=== PATIENT | female | born 1930 | race Two or more races ===

== ENCOUNTER 2018-06-18 09:48 | Outpatient (CLI) | payer MEDICARE ==
[~2018-06-18 09:48] MED LIST: ASPI-496 PO; LEVO50TA5 PO; LISI-170 PO; LOVA40TA2 PO; METO25TA35 PO; MULT-717 PO
[2018-06-18 12:40] LABS: BASOPHILS # (AUTO) 0.03 x10^3/uL (0-0.1); BASOPHILS % (AUTO) 0 % (0-1); EOSINOPHILS # (AUTO) 0.16 x10^3/uL (0-0.4); EOSINOPHILS % (AUTO) 3 % (1-7); LYMPHOCYTES # (AUTO) 1.44 x10^3/uL (1-3.4); LYMPHOCYTES % (AUTO) 24 % (22-44); MD NO; MEAN CORPUSCULAR HEMOGLOBIN 27.5 pg (27.0-34.8); MEAN CORPUSCULAR HGB CONC 32.8 g/dL (32.4-35.8); MEAN CORPUSCULAR VOLUME 83.9 fL (80-100); MEAN PLATELET VOLUME 9.6 fL (7.4-10.4); MONOCYTES # (AUTO) 0.48 x10^3/uL (0.2-0.8); MONOCYTES % (AUTO) 8 % (2-9); NEUTROPHILS # (AUTO) 3.89 x10^3/uL (1.8-6.8); NEUTROPHILS % (AUTO) 65 % (42-75); PLATELET COUNT 314 x10^3/uL (130-400); RED BLOOD COUNT 4.54 x10^6/uL (3.82-5.3); RED CELL DISTRIBUTION WIDTH 15.8 % (9.6-15.2)
[2018-06-18 12:52] LABS: ALBUMIN 3.5 g/dL (3.4-5.0); ANION GAP 6 mmol/L (5-15); CALCIUM 8.8 mg/dL (8.5-10.1); CHLORIDE 109 mmol/L (98-107)
[2018-06-18 13:05] LABS: ALANINE AMINOTRANSFERASE 21 U/L (12-78); ALKALINE PHOSPHATASE 96 U/L (45-117); BILIRUBIN,TOTAL 0.3 mg/dL (0.2-1.0); CHOL/HDL RATIO 2.3; CHOLESTEROL, TOTAL 134 mg/dL (140-239); CREATININE 0.91 mg/dL (0.55-1.02); HDL CHOL % 43 % (28-40); HDL CHOLESTEROL (DIRECT) 58 mg/dL (40-60); LDL CHOLESTEROL,CALCULATED 57 mg/dL (54-169); TOTAL PROTEIN 7.1 g/dL (6.4-8.2); TRIGLYCERIDES 94 mg/dL (50-200); VLDL CHOLESTEROL 19 mg/dL (0-25)
== END 2018-06-18 23:59 | disposition home or self-care (01) ==
LOC: CFH 09:48
PROVIDERS: ATTEND Family Medicine
DX: E78.5 Hyperlipidemia, unspecified (principal); E55.9 Vitamin D deficiency, unspecified; E03.9 Hypothyroidism, unspecified; I10 Essential (primary) hypertension; M19.90 Unspecified osteoarthritis, unspecified site; R73.9 Hyperglycemia, unspecified
CPT/HCPCS: 36415; 80053; 80061; 82306; 84443; 85025

== ENCOUNTER 2018-08-29 18:40 | Inpatient (IN) | payer MEDICARE ==
[~2018-08-29] VITALS: Ht 160 cm; Wt 63.5 kg
--- NOTE | 2018-08-29 18:50 | NUR ---
PT IN GOWN IN [facility]; ERP AT . PT AND FAMILY EDUCATED ON ER PROCESS AND POC AND VERBALIZES UNDERSTANDING. CALL LIGHT IS WITHIN REACH. AWAITING ORDERS AT THIS TIME. PT ATTACHED TO VS MACHINES. VSS AT THIS TIME.
[2018-08-29] MEDS ORDERED: SODIUM CHLORIDE FLUSH 10ML SYR IVF ONE (19:00)
[2018-08-29] MEDS ORDERED: ONDANSETRON 2MG/ML, 2ML IVPush ONE (19:00)
[2018-08-29] MEDS ORDERED: MORPHINE SULFATE 4 MG/ML, 1ML IVPush PRN (19:00)
[2018-08-29] MEDS ORDERED: MORPHINE SULFATE 4 MG/ML, 1ML ONE (19:24)
[2018-08-29] MEDS ORDERED: ONDANSETRON 2MG/ML, 2ML ONE (19:24)
--- NOTE | 2018-08-29 19:26 | NUR ---
PT MEDICATED PER MAR
[2018-08-29 19:31] LABS: BASOPHILS # (AUTO) 0.06 x10^3/uL (0-0.1); BASOPHILS % (AUTO) 1 % (0-1); EOSINOPHILS # (AUTO) 0.07 x10^3/uL (0-0.4); EOSINOPHILS % (AUTO) 1 % (1-7); LYMPHOCYTES # (AUTO) 1.13 x10^3/uL (1-3.4); LYMPHOCYTES % (AUTO) 11 % (22-44); MD NO; MEAN CORPUSCULAR HEMOGLOBIN 27.4 pg (27.0-34.8); MEAN CORPUSCULAR VOLUME 83.1 fL (80-100); MEAN PLATELET VOLUME 9.6 fL (7.4-10.4); MONOCYTES # (AUTO) 0.82 x10^3/uL (0.2-0.8); MONOCYTES % (AUTO) 8 % (2-9); NEUTROPHILS # (AUTO) 8.05 x10^3/uL (1.8-6.8); NEUTROPHILS % (AUTO) 79 % (42-75); PLATELET COUNT 313 x10^3/uL (130-400); RED BLOOD COUNT 4.73 x10^6/uL (3.82-5.3)
[2018-08-29 19:35] LABS: ALANINE AMINOTRANSFERASE 24 U/L (12-78); ALBUMIN 3.7 g/dL (3.4-5.0); ANION GAP 9 mmol/L (5-15); CALCIUM 9.4 mg/dL (8.5-10.1); CHLORIDE 102 mmol/L (98-107); CREATININE 1.02 mg/dL (0.55-1.02)
[2018-08-29 19:37] LABS: ALKALINE PHOSPHATASE 92 U/L (45-117); BILIRUBIN,TOTAL 0.6 mg/dL (0.2-1.0); TOTAL PROTEIN 7.3 g/dL (6.4-8.2)
--- NOTE | 2018-08-29 20:14 | NUR ---
URINE COLLECTED AND WALKED TO LAB.
--- NOTE | 2018-08-29 20:22 | NUR ---
PT TO CT VIA RIO
[2018-08-29 20:25] LABS: MICROSCOPIC INDICATED
[2018-08-29] MEDS ORDERED: OMNIPAQUE 350 MG/ML, 100ML BOTTLE ONE (20:30)
[2018-08-29 20:31] LABS: CULTURE INDICATED? YES
--- NOTE | 2018-08-29 21:15 | NUR ---
PT RESTING COMFORTABLY IN [facility] AT THIS TIME, NADN. PT VSS. PT FAMILY AT BEDSIDE. PT HAS CALL LIGHT WITHIN REACH AT THIS TIME.
--- NOTE | 2018-08-29 21:43 | NUR ---
HOSPITALIST AT WITH PT.
[2018-08-29] MEDS ORDERED: SODIUM CHLORIDE 0.9% 1,000 ML IV ONE (21:44)
[2018-08-29] MEDS ORDERED: SODIUM CHLORIDE FLUSH 10ML SYR IVF PRN (22:00)
[2018-08-29] MEDS ORDERED: LORazepam 2 MG/ML, 1ML ONE (22:02)
--- NOTE | 2018-08-29 22:09 | NUR ---
VERBAL ORDERS RECEIVED FROM GIULIANO Mclaughlin NP FOR 0.5 MG IV ATIVAN FOR ANXIETY. PT MEDICATED PER JUN.
--- NOTE | 2018-08-29 22:24 | NUR ---
PT TO US VIA RIO. FAMILY IN ROOM AT .
[2018-08-29] MEDS ORDERED: LORazepam 2 MG/ML, 1ML IVPush PRN (22:30)
--- NOTE | 2018-08-29 22:54 | NUR ---
REPORT OF PT TO RENEE CARMONA. ALL QUESTIONS ANSWERED. 14 FR NG TUBE PLACED AND SECURED AT LEFT NOSTRIL. AIR BOLUS HEARD ON AUSCULTATION, AND GASTRIC CONTENTS SEEN WITH INTERMITTENT SUCTIONING.
[2018-08-29 23:45] VITALS: BP 179/75
[2018-08-30] MEDS ORDERED: HYDR-3237 PO (01:05)
[2018-08-30] MEDS ORDERED: TIMO5DRO37 EACHEYE (01:05)
[2018-08-30] MEDS ORDERED: CALC-649 PO (01:05)
[2018-08-30] MEDS ORDERED: CLOP75TA PO (01:05)
[2018-08-30] MEDS ORDERED: SODIUM CHLORIDE 0.9% 1,000 ML IV SCH (01:30)
[2018-08-30 02:00] VITALS: BP 159/71
[2018-08-30] MEDS: SODIUM CHLORIDE 0.9% 1,000 ML IV SCH ×2 (02:00→14:54)
[2018-08-30] MEDS: MORPHINE SULFATE 4 MG/ML, 1ML IV PRN ×4 (02:00→22:17)
[2018-08-30] MEDS ORDERED: LEVOTHYROXINE 25 MCG TABLET ONE (08:14)
[2018-08-30] MEDS: LISINOPRIL 20 MG TABLET PO SCH (08:21)
[2018-08-30] MEDS: LATANOPROST EACHEYE SCH ×2 (08:21→20:19)
[2018-08-30] MEDS: MULTIVITAMIN 1 TABLET PO SCH (08:21)
[2018-08-30] MEDS: TIMOLOL MALEATE EACHEYE SCH ×2 (08:21→20:19)
[2018-08-30] MEDS: [UNRECOGNIZED DRUG - OTHER] EACHEYE SCH ×2 (08:21→20:19)
[2018-08-30] MEDS: LEVOTHYROXINE 50 MCG TABLET PO SCH (08:21)
[2018-08-30] MEDS ORDERED: METOPROLOL TARTRATE 25 MG TABLET PO SCH (09:00)
[2018-08-30] MEDS ORDERED: CALCIUM/VITAMIN D3 250-125 TABLET PO SCH (09:00)
[2018-08-30 09:09] VITALS: BP 174/73
[2018-08-30 14:13] VITALS: BP 193/72
[2018-08-30] MEDS ORDERED: AMLODIPINE 2.5 MG TABLET PO ONE (15:00)
[2018-08-30 19:26] VITALS: BP 172/67
[2018-08-30] MEDS: METOPROLOL TARTRATE 25 MG TABLET PO SCH (20:19)
[2018-08-30] MEDS ORDERED: LOVASTATIN 40 MG TABLET PO SCH (21:00)
[2018-08-31] MEDS: MORPHINE SULFATE 4 MG/ML, 1ML IV PRN ×3 (02:06→20:38)
[2018-08-31] MEDS: SODIUM CHLORIDE 0.9% 1,000 ML IV SCH ×2 (02:07→18:37)
[2018-08-31 04:04] VITALS: BP 159/84
[2018-08-31 05:56] LABS: BASOPHILS % (AUTO) 0 % (0-1); EOSINOPHILS # (AUTO) 0.01 x10^3/uL (0-0.4); EOSINOPHILS % (AUTO) 0 % (1-7); LYMPHOCYTES % (AUTO) 10 % (22-44); MD NO; MEAN CORPUSCULAR HEMOGLOBIN 27.5 pg (27.0-34.8); MEAN CORPUSCULAR HGB CONC 32.7 g/dL (32.4-35.8); MEAN CORPUSCULAR VOLUME 84.3 fL (80-100); MEAN PLATELET VOLUME 9.5 fL (7.4-10.4); MONOCYTES # (AUTO) 0.96 x10^3/uL (0.2-0.8); MONOCYTES % (AUTO) 14 % (2-9); NEUTROPHILS # (AUTO) 5.22 x10^3/uL (1.8-6.8); NEUTROPHILS % (AUTO) 76 % (42-75); PLATELET COUNT 247 x10^3/uL (130-400); RED BLOOD COUNT 3.99 x10^6/uL (3.82-5.3); RED CELL DISTRIBUTION WIDTH 16.3 % (9.6-15.2)
[2018-08-31 06:02] LABS: ANION GAP 8 mmol/L (5-15); CALCIUM 8.4 mg/dL (8.5-10.1); CHLORIDE 107 mmol/L (98-107)
[2018-08-31 06:03] LABS: CREATININE 0.76 mg/dL (0.55-1.02)
[2018-08-31 07:25] VITALS: BP 149/62
[2018-08-31 09:40] VITALS: BP 184/89
[2018-08-31] MEDS: LISINOPRIL 20 MG TABLET PO SCH (09:44)
[2018-08-31] MEDS: LEVOTHYROXINE 50 MCG TABLET PO SCH (09:44)
[2018-08-31] MEDS: MULTIVITAMIN 1 TABLET PO SCH (09:44)
[2018-08-31] MEDS: METOPROLOL TARTRATE 25 MG TABLET PO SCH ×2 (09:44→20:03)
[2018-08-31] MEDS: LATANOPROST EACHEYE SCH ×2 (09:54→20:42)
[2018-08-31] MEDS: TIMOLOL MALEATE EACHEYE SCH ×2 (09:54→20:42)
[2018-08-31] MEDS: [UNRECOGNIZED DRUG - OTHER] EACHEYE SCH ×2 (09:54→20:42)
[2018-08-31 13:20] VITALS: BP 118/70
[2018-08-31 19:43] VITALS: BP 191/93
[2018-08-31] MEDS ORDERED: hydrALAzine 20 MG/ML, 1ML IV PRN (20:30)
[2018-08-31] MEDS: HEPARIN 5,000 UNITS/ML, 1ML SQ SCH (20:41)
[2018-09-01 00:06] VITALS: BP 139/74
[2018-09-01] MEDS: SODIUM CHLORIDE 0.9% 1,000 ML IV SCH ×2 (05:38→23:25)
[2018-09-01 05:41] LABS: BASOPHILS # (AUTO) 0.02 x10^3/uL (0-0.1); BASOPHILS % (AUTO) 0 % (0-1); EOSINOPHILS # (AUTO) 0.05 x10^3/uL (0-0.4); EOSINOPHILS % (AUTO) 1 % (1-7); LYMPHOCYTES % (AUTO) 14 % (22-44); MD NO; MEAN CORPUSCULAR HEMOGLOBIN 27.3 pg (27.0-34.8); MEAN CORPUSCULAR HGB CONC 32.6 g/dL (32.4-35.8); MEAN CORPUSCULAR VOLUME 83.8 fL (80-100); MONOCYTES # (AUTO) 0.68 x10^3/uL (0.2-0.8); MONOCYTES % (AUTO) 12 % (2-9); NEUTROPHILS # (AUTO) 4.12 x10^3/uL (1.8-6.8); NEUTROPHILS % (AUTO) 73 % (42-75); PLATELET COUNT 253 x10^3/uL (130-400); RED CELL DISTRIBUTION WIDTH 16.5 % (9.6-15.2)
[2018-09-01 05:43] LABS: ANION GAP 9 mmol/L (5-15); CALCIUM 7.9 mg/dL (8.5-10.1); CHLORIDE 109 mmol/L (98-107)
[2018-09-01 05:46] LABS: CREATININE 0.54 mg/dL (0.55-1.02)
[2018-09-01 07:55] VITALS: BP 143/69
[2018-09-01] MEDS: HEPARIN 5,000 UNITS/ML, 1ML SQ SCH ×2 (08:30→14:27)
[2018-09-01] MEDS: TIMOLOL MALEATE EACHEYE SCH ×2 (09:00→21:45)
[2018-09-01] MEDS: MULTIVITAMIN 1 TABLET PO SCH (09:00)
[2018-09-01] MEDS: LATANOPROST EACHEYE SCH ×2 (09:00→21:45)
[2018-09-01] MEDS: [UNRECOGNIZED DRUG - OTHER] EACHEYE SCH ×2 (09:00→21:45)
[2018-09-01] MEDS ORDERED: POTASSIUM CHLORIDE 40 MEQ in SODIUM CHLORIDE 0.9% 500 ML IV ONE (10:00)
[2018-09-01] MEDS: MORPHINE SULFATE 4 MG/ML, 1ML IV PRN (12:07)
[2018-09-01 13:45] VITALS: BP 172/71
[2018-09-01] MEDS: LISINOPRIL 20 MG TABLET PO SCH (14:22)
[2018-09-01] MEDS: METOPROLOL TARTRATE 25 MG TABLET PO SCH ×2 (14:22→20:23)
[2018-09-01] MEDS: LEVOTHYROXINE 50 MCG TABLET PO SCH (14:23)
[2018-09-01] MEDS ORDERED: ACETAMINOPHEN 325 MG TABLET PO PRN (17:00)
[2018-09-01 18:58] VITALS: BP 186/80
[2018-09-01] MEDS ORDERED: BENZOCAINE AEROSOL SPRAY 20%, 60ML TP ONE (19:30)
[2018-09-01 20:24] VITALS: BP 138/57
[2018-09-02 00:57] VITALS: BP 159/64
[2018-09-02] MEDS: HEPARIN 5,000 UNITS/ML, 1ML SQ SCH ×2 (01:54→14:30)
[2018-09-02 05:25] LABS: BASOPHILS # (AUTO) 0.03 x10^3/uL (0-0.1); BASOPHILS % (AUTO) 1 % (0-1); EOSINOPHILS # (AUTO) 0.14 x10^3/uL (0-0.4); EOSINOPHILS % (AUTO) 3 % (1-7); LYMPHOCYTES # (AUTO) 0.94 x10^3/uL (1-3.4); LYMPHOCYTES % (AUTO) 19 % (22-44); MD NO; MEAN CORPUSCULAR HEMOGLOBIN 27.7 pg (27.0-34.8); MEAN CORPUSCULAR HGB CONC 33.1 g/dL (32.4-35.8); MEAN CORPUSCULAR VOLUME 83.8 fL (80-100); MEAN PLATELET VOLUME 9.9 fL (7.4-10.4); MONOCYTES # (AUTO) 0.74 x10^3/uL (0.2-0.8); MONOCYTES % (AUTO) 15 % (2-9); NEUTROPHILS # (AUTO) 3.13 x10^3/uL (1.8-6.8); NEUTROPHILS % (AUTO) 63 % (42-75); PLATELET COUNT 262 x10^3/uL (130-400); RED BLOOD COUNT 3.89 x10^6/uL (3.82-5.3); RED CELL DISTRIBUTION WIDTH 16.7 % (9.6-15.2)
[2018-09-02 05:38] LABS: ANION GAP 10 mmol/L (5-15); CALCIUM 7.8 mg/dL (8.5-10.1); CHLORIDE 112 mmol/L (98-107)
[2018-09-02 05:39] LABS: CREATININE 0.69 mg/dL (0.55-1.02)
[2018-09-02 08:00] VITALS: BP 145/65
[2018-09-02] MEDS ORDERED: POTASSIUM CHLORIDE 40 MEQ in SODIUM CHLORIDE 0.9% 500 ML IV ONE (08:00)
[2018-09-02] MEDS ORDERED: LEVOTHYROXINE 25 MCG TABLET ONE (08:47)
[2018-09-02] MEDS: LISINOPRIL 20 MG TABLET PO SCH (08:57)
[2018-09-02] MEDS: METOPROLOL TARTRATE 25 MG TABLET PO SCH ×2 (08:57→21:03)
[2018-09-02] MEDS: LEVOTHYROXINE 50 MCG TABLET PO SCH (08:57)
[2018-09-02] MEDS: MULTIVITAMIN 1 TABLET PO SCH (08:58)
[2018-09-02] MEDS: [UNRECOGNIZED DRUG - OTHER] EACHEYE SCH ×2 (08:58→21:00)
[2018-09-02] MEDS: TIMOLOL MALEATE EACHEYE SCH ×2 (08:58→21:00)
[2018-09-02] MEDS: LATANOPROST EACHEYE SCH ×2 (08:58→21:00)
[2018-09-02] MEDS: POTASSIUM CHLORIDE 20 MEQ in SODIUM CHLORIDE 0.45% 1,000 ML IV SCH ×2 (10:48→23:39)
[2018-09-02 14:59] VITALS: BP 193/89
[2018-09-02 15:18] VITALS: BP 157/68
[2018-09-02 20:08] VITALS: BP 212/93
[2018-09-02 20:57] VITALS: BP 174/75
[2018-09-03 01:11] VITALS: BP 172/66
[2018-09-03] MEDS: HEPARIN 5,000 UNITS/ML, 1ML SQ SCH ×2 (02:07→14:30)
[2018-09-03 04:58] VITALS: BP 157/72
[2018-09-03 05:45] LABS: BASOPHILS # (AUTO) 0.02 x10^3/uL (0-0.1); BASOPHILS % (AUTO) 0 % (0-1); EOSINOPHILS # (AUTO) 0.07 x10^3/uL (0-0.4); EOSINOPHILS % (AUTO) 1 % (1-7); LYMPHOCYTES % (AUTO) 19 % (22-44); MD NO; MEAN CORPUSCULAR HEMOGLOBIN 27.7 pg (27.0-34.8); MEAN CORPUSCULAR HGB CONC 33.4 g/dL (32.4-35.8); MEAN PLATELET VOLUME 9.9 fL (7.4-10.4); MONOCYTES # (AUTO) 0.65 x10^3/uL (0.2-0.8); MONOCYTES % (AUTO) 14 % (2-9); NEUTROPHILS # (AUTO) 3.04 x10^3/uL (1.8-6.8); NEUTROPHILS % (AUTO) 65 % (42-75); PLATELET COUNT 254 x10^3/uL (130-400); RED BLOOD COUNT 3.83 x10^6/uL (3.82-5.3); RED CELL DISTRIBUTION WIDTH 16.4 % (9.6-15.2)
[2018-09-03 05:54] LABS: ANION GAP 6 mmol/L (5-15); CALCIUM 7.8 mg/dL (8.5-10.1); CHLORIDE 111 mmol/L (98-107)
[2018-09-03 05:55] LABS: CREATININE 0.53 mg/dL (0.55-1.02)
[2018-09-03] MEDS: LEVOTHYROXINE 50 MCG TABLET PO SCH ×2 (06:00→08:21)
[2018-09-03] MEDS: MULTIVITAMIN 1 TABLET PO SCH (08:20)
[2018-09-03] MEDS: LISINOPRIL 20 MG TABLET PO SCH (08:20)
[2018-09-03] MEDS: METOPROLOL TARTRATE 25 MG TABLET PO SCH (08:21)
[2018-09-03] MEDS: TIMOLOL MALEATE EACHEYE SCH (08:21)
[2018-09-03] MEDS: LATANOPROST EACHEYE SCH (08:21)
[2018-09-03] MEDS: [UNRECOGNIZED DRUG - OTHER] EACHEYE SCH (08:21)
[2018-09-03 08:23] VITALS: BP 156/81
[2018-09-03 13:51] VITALS: BP 180/83
[2018-09-03 13:55] VITALS: BP 190/83
== END 2018-09-03 16:25 | disposition home or self-care (01) | DRG 390 ==
LOC: ED 21:08 → EDIP 21:44 → 4NOR 23:04
PROVIDERS: ADMIT Family Medicine; ATTEND Family Medicine
PROC: 0D9670Z Drainage of Stomach with Drainage Device, Via Natural or Artificial Opening (ICD-10-PCS; principal; 2018-08-29)
DX: K56.51 Intestinal adhesions [bands], with partial obstruction (principal); I73.9 Peripheral vascular disease, unspecified; K82.8 Other specified diseases of gallbladder; Q12.0 Congenital cataract; D64.9 Anemia, unspecified; E03.9 Hypothyroidism, unspecified; K43.5 Parastomal hernia without obstruction or gangrene; E78.5 Hyperlipidemia, unspecified; E87.6 Hypokalemia; H40.9 Unspecified glaucoma; I10 Essential (primary) hypertension; I25.10 Atherosclerotic heart disease of native coronary artery without angina pectoris; K80.20 Calculus of gallbladder without cholecystitis without obstruction; Z95.1 Presence of aortocoronary bypass graft; M81.0 Age-related osteoporosis without current pathological fracture; Z85.51 Personal history of malignant neoplasm of bladder; Z93.6 Other artificial openings of urinary tract status; Z93.2 Ileostomy status
CPT/HCPCS: 36415; 74018; 74177; 74250; 76700; 80048; 80053; 81001; 83690; 83735; 85025; 87086; 93005; 96374; 96375; G0378; J1644; J2405; J3480; Q9967; J0360; J2060; J7030; J7040